=== PATIENT | male | born 1995 ===

== ENCOUNTER 2022-07-22 00:11 | Emergency (ER) | payer OTHER, SELFPAY ==
[2022-07-22] MEDS ORDERED: IBUPROFEN 400 MG TAB ONE (01:02)
[2022-07-22] MEDS ORDERED: IBUPROFEN 200 MG TAB PO ONE (01:02)
[2022-07-22] MEDS ORDERED: DIAZEPAM 2 MG TABLET ONE (01:02)
--- NOTE | 2022-07-22 01:02 | EDPHYS ---
Physician Documentation [facility] Name: Jason Singh Age: 27 yrs Sex: Male : 1995 Arrival Date: 07/22/2022 Time: 00:22 Bed IW2 Private MD: ED Physician Kassandra Garcia HPI: 07/22 00:59 This 27 yrs old Male presents to ER via EMS with complaints of Seizure. sd2 00:59 27 yo M presents via EMS with CC of seizure. Reports has been dealing with seizures for sd2 the past few months. Was seen at an ER with negative workup including CT scan and has yet to follow up with Neurology. Reports believes it may be due to taking Kratom, an herbal medication he got from a friend to help him quit using opiates. He also uses his friend's Xanax. He is unsure how much he has been taking each day for anxiety but has not had any since he left [facility] to come to the area on Saturday. Pt had a witnessed seizure in the backseat of the car with tongue biting lasting approximately 5 minutes. No trauma. Pt initially post-ictal but is now back to baseline. Complains of pain to muscles of his upper back. . Historical: - Allergies: 00:57 No Known Allergies; tw5 - Home Meds: 00:57 Xanax 2 mg Oral tab [Active]; kratom [Active]; tw5 - PMHx: 00:57 Seizure; tw5 - PSHx: 00:57 None; tw5 - Immunization history:: Flu vaccine is not up to date. - Social history:: Smoking status: Reported history of juuling and/or vaping. ROS: 01:07 Constitutional: Negative for fever, chills, and weight loss, Eyes: Negative for injury, sd2 pain, redness, and discharge, ENT: Negative for injury, pain, and discharge, Cardiovascular: Negative for chest pain, palpitations, and edema, Respiratory: Negative for shortness of breath, cough, wheezing. Abdomen/GI: Negative for abdominal pain, nausea, vomiting, diarrhea. 01:07 : Negative for dysuria, frequency or hematuria. MS/Extremity: Negative for injury and deformity, Skin: Negative for injury, rash, and discoloration, Neuro: Negative for headache, numbness and tingling. Psych: Positive for anxiety. Negative for suicidal or homicidal ideation. 01:07 Back: Positive for pain with movement, Negative for decreased range of motion. Exam: 01:07 Constitutional: This is a well developed, well nourished patient who is awake, alert, sd2 and in no acute distress. Head/Face: Normocephalic, atraumatic. Eyes: EOMI, normal conjunctiva bilaterally Chest/axilla: Normal chest wall appearance and motion. Nontender with no deformity. Cardiovascular: Regular rate and rhythm with a normal S1 and S2. No gallops, murmurs, or rubs. 2+ distal pulses. Respiratory: Lungs have equal breath sounds bilaterally, clear to auscultation and percussion. No rales, rhonchi or wheezes noted. No increased work of breathing, no retractions or nasal flaring. Abdomen/GI: Soft, non-tender, with normal bowel sounds. No guarding or rebound. No evidence of tenderness throughout. Skin: Warm, dry with normal turgor. Normal color with no rashes, no lesions, and no evidence of cellulitis. MS/ Extremity: Pulses equal, no cyanosis. Neurovascular intact. Full, normal range of motion. Ambulatory without difficulty. Neuro: Awake and alert, GCS 15, oriented to person, place, time, and situation. Cranial nerves II-XII grossly intact. Motor strength 5/5 in all extremities. Sensory grossly intact. Cerebellar exam normal. Normal gait. Psych: Awake, alert, with orientation to person, place and time. Behavior, mood, and affect are within normal limits. Vital Signs: 00:46 BP 138 / 89; Pulse 100; Resp 18; Temp 98.3; Pulse Ox 100% on R/A; Weight 63.5 kg; tw5 Height 5 ft. 8 in. (172.72 cm); Pain 4/10; 00:46 Body Mass Index 21.29 (63.50 kg, 172.72 cm) tw5 [place] Coma Score: 00:57 Eye Response: spontaneous(4). Verbal Response: oriented(5). Motor Response: obeys tw5 commands(6). Total: 15. MDM: 01:01 Patient medically screened. sd2 01:07 Differential diagnosis: benzo withdrawal, substance abuse, doubt ICH, electrolyte sd2 abnormality among others. Data reviewed: vital signs, nurses notes, EMS record. Counseling: I had a detailed discussion with the patient and/or guardian regarding: the historical points, exam findings, and any diagnostic results supporting the discharge/admit diagnosis, the need for outpatient follow up, to return to the emergency department if symptoms worsen or persist or if there are any questions or concerns that arise at home. ED course: I had an in-depth discussion with the patient and his family at bedside regarding his substance abuse. It is unclear whether his seizure tonight could have been from benzodiazepine withdrawal or from his kratom use as he has been dealing with seizures prior to stopping the Xanax on Saturday. The patient was given Valium in the ER and advised of need to not stop his benzodiazepines cold due to the severe nature that can occur with withdrawal from this medication. He was given a prescription for a small dose of Valium to help prevent severe withdrawal until he returns home to [place] on Saturday. Patient was also counseled for stop using kratom as it could be causing his seizures and the need for follow-up with neurology regarding his seizures. The patient verbalized understanding of all of this and is comfortable with plan for discharge and outpatient follow-up when he returns home to [place] this upcoming week. He is currently alert and oriented and back to his mental baseline.. Administered Medications: 01:09 Drug: Ibuprofen 600 mg Route: PO; tw 01:10 Drug: Valium (diazepam) 2 mg Route: PO; tw Disposition Summary: 07/22/22 01:01 Discharge Ordered Location: Home sd2 Problem: an ongoing problem sd2 Symptoms: have improved sd2 Condition: Stable sd2 Diagnosis - Seizure sd2 - Substance abuse sd2 - Benzodiazepine withdrawal sd2 Followup: sd2 - With: Private Physician - When: 2 - 3 days - Reason: Recheck today's complaints, Continuance of care, Re-evaluation by your physician Discharge Instructions: - Discharge Summary Sheet sd2 - Substance Use Disorder sd2 - Seizure, Adult sd2 - Benzodiazepine Withdrawal sd2 Forms: - Medication Reconciliation Form sd2 - Thank You Letter sd2 - Antibiotic Education sd2 - Prescription Opioid Use sd2 Prescriptions: - Valium 2 mg Oral Tablet - take 1 tablet by ORAL route every 8 hours As needed; 9 tablet; Refills: 0, sd2 Product Selection Permitted Signatures: Nicci Anderson tw5 Kassandra Garcia MD MD sd2 Corrections: (The following items were deleted from the chart) 01:09 00:59 27 yo M presents via EMS with CC of seizure. Reports has been dealing with sd2 seizures for the past few months. . sd2
--- NOTE | 2022-07-22 01:02 | ER ---
Nurse's Notes [facility] Name: Jason Singh Age: 27 yrs Sex: Male : 1995 Arrival Date: 07/22/2022 Time: 00:22 Bed IW2 Private MD: Diagnosis: Seizure;Substance abuse;Benzodiazepine withdrawal Presentation: 07/22 00:46 Chief complaint: EMS states: "He was the passenger in a car when he started to have tw5 full body convulsions, family pulled over and called 911. He was post ictal upon arrival. He couldn't tell us where he was he just kept repeating his date. He believes his medication Cradydum for his opiod abuse is causing his seizures. He has not seen a neurologist.". Coronavirus screen: Vaccine status: Patient reports receiving the 2nd dose of the covid vaccine. Volusion. Ebola Screen: Patient negative for fever greater than or equal to 101.5 degrees Fahrenheit, and additional compatible Ebola Virus Disease symptoms Patient denies exposure to infectious person. Patient denies travel to an Ebola-affected area in the 21 days before illness onset. Initial Sepsis Screen: Does the patient meet any 2 criteria? HR > 90 bpm. Does the patient have a suspected source of infection? No. Patient's initial sepsis screen is negative. Risk Assessment: Do you want to hurt yourself or someone else?. Onset of symptoms was July 21, 2022 at 23:30. 00:46 Method Of Arrival: EMS: [facility] tw5 00:46 Acuity: SHARYN 5 tw5 Triage Assessment: 00:57 General: Appears in no apparent distress. Behavior is cooperative, anxious. Pain: tw5 Complains of pain in "My back is just sore." Pain currently is 4 out of 10 on a pain scale. Neuro: Level of Consciousness is awake, alert, obeys commands, Oriented to person, place, time, situation. Historical: - Allergies: 00:57 No Known Allergies; tw5 - Home Meds: 00:57 Xanax 2 mg Oral tab [Active]; kratom [Active]; tw5 - PMHx: 00:57 Seizure; tw5 - PSHx: 00:57 None; tw5 - Immunization history:: Flu vaccine is not up to date. - Social history:: Smoking status: Reported history of juuling and/or vaping. Screenin:59 Abuse screen: Denies threats or abuse. Denies injuries from another. Nutritional tw5 screening: No deficits noted. Tuberculosis screening: No symptoms or risk factors identified. Fall Risk None identified. Assessment: 00:59 General: Appears in no apparent distress. Behavior is cooperative, appropriate for age, tw5 anxious. GI: No deficits noted. Vital Signs: 00:46 BP 138 / 89; Pulse 100; Resp 18; Temp 98.3; Pulse Ox 100% on R/A; Weight 63.5 kg; tw5 Height 5 ft. 8 in. (172.72 cm); Pain 4/10; 00:46 Body Mass Index 21.29 (63.50 kg, 172.72 cm) tw5 [place] Coma Score: 00:57 Eye Response: spontaneous(4). Verbal Response: oriented(5). Motor Response: obeys tw5 commands(6). Total: 15. ED Course: 00:22 Patient arrived in ED. tw5 00:26 Kassandra Garcia MD is Attending Physician. sd2 00:57 Triage completed. tw5 00:59 Patient has correct armband on for positive identification. Adult w/ patient. tw5 00:59 No provider procedures requiring assistance completed. Patient did not have IV access tw5 during this emergency room visit. 01:00 Nicci Anderson is Primary Nurse. 01:10 Arm band placed on. 01:10 Seizure precautions initiated. tw5 Administered Medications: 01:09 Drug: Ibuprofen 600 mg Route: PO; 01:10 Drug: Valium (diazepam) 2 mg Route: PO; 5 Medication: 00:59 VIS not applicable for this client. 5 Outcome: 01:01 Discharge ordered by . sd2 01:10 Discharged to home ambulatory, with family. tw5 01:10 Condition: good 01:10 Discharge instructions given to patient, family, Instructed on discharge instructions, follow up and referral plans. Demonstrated understanding of instructions, follow-up care, medications, Prescriptions given X 1. 01:11 Patient left the ED. tw5 Signatures: Nicci Anderson tw5 Kassandra Garcia MD MD sd2
[2022-07-22 01:15] VITALS: BP 138/89; TEMP 98.3; O2SAT 100
== END 2022-07-22 01:11 | disposition home or self-care (01) ==
LOC: ER 00:11
DX: R56.9 Unspecified convulsions (principal); F19.139 Other psychoactive substance abuse with withdrawal, unspecified; F13.10 Sedative, hypnotic or anxiolytic abuse, uncomplicated
CPT/HCPCS: 99283